=== PATIENT | male | born 2000 | race African-American/Black ===

== ENCOUNTER 2023-10-23 23:17 | Emergency (ER) | payer OTHER ==
[~2023-10-23] VITALS: Ht 182.9 cm; Wt 113.4 kg
[2023-10-24] MEDS ORDERED: ONDANSETRON HCL 4 MG ORAL DISINTEGRATING TAB ONE (00:26)
[2023-10-24] MEDS ORDERED: HYDROCODONE/APAP 5MG-325MG TAB ONE (00:27)
[2023-10-24] MEDS ORDERED: THERAFLU MS SE1 EACH PO (00:36)
[2023-10-24] MEDS ORDERED: AZITHROMYCIN250 MG PO (00:36)
[2023-10-24 00:45] VITALS: BP 137/65; PULSE 102; RESP 18; TEMP 100.1; O2SAT 97
== END 2023-10-24 00:45 | disposition home or self-care (01) ==
LOC: FSED 23:22
DX: R50.9 Fever, unspecified (principal); J10.1 Influenza due to other identified influenza virus with other respiratory manifestations; R05.9 Cough, unspecified; R53.81 Other malaise; F90.9 Attention-deficit hyperactivity disorder, unspecified type; Z11.52 Encounter for screening for COVID-19
CPT/HCPCS: 0223U; 83518; 87400; 99282; Q0162

== ENCOUNTER 2024-07-30 08:09 | Emergency (ER) | payer OTHER ==
[~2024-07-30] VITALS: Ht 182.9 cm; Wt 115.2 kg
[~2024-07-30 08:09] MED LIST: AZITHROMYCIN250 MG PO; THERAFLU MS SE1 EACH PO
[2024-07-30 08:16] VITALS: PULSE 79; RESP 16; TEMP 98; O2SAT 96
[2024-07-30] MEDS: IBUPROFEN 400 MG TAB PO STA (08:56)
== END 2024-07-30 09:35 | disposition home or self-care (01) ==
LOC: FSED 08:12
DX: M79.672 Pain in left foot (principal); F90.9 Attention-deficit hyperactivity disorder, unspecified type
CPT/HCPCS: 99283